=== PATIENT | male | born 1960 | race Two or more races ===

== ENCOUNTER 2017-08-16 08:51 | Outpatient (CLI) | payer OTHER | END 2017-08-16 09:00 | disposition home or self-care (01) | LOC: LAB 08:51 | DX: D68.8 Other specified coagulation defects (principal); M54.06 Panniculitis affecting regions of neck and back, lumbar region ==

== ENCOUNTER → 2017-08-25 | Outpatient (CLI) | payer OTHER | END | disposition home or self-care (01) | LOC: LAB 08:20 | DX: B94.2 Sequelae of viral hepatitis (principal); I11.9 Hypertensive heart disease without heart failure; E03.8 Other specified hypothyroidism; E78.89 Other lipoprotein metabolism disorders; N39.0 Urinary tract infection, site not specified; N40.0 Benign prostatic hyperplasia without lower urinary tract symptoms; E78.00 Pure hypercholesterolemia, unspecified; M19.90 Unspecified osteoarthritis, unspecified site; F33.9 Major depressive disorder, recurrent, unspecified; R97.8 Other abnormal tumor markers; D84.9 Immunodeficiency, unspecified ==

== ENCOUNTER 2017-09-19 09:04 | Outpatient (CLI) | payer OTHER | END 2017-09-19 09:08 | disposition home or self-care (01) | LOC: RAD 09:04 | DX: D68.8 Other specified coagulation defects (principal); M54.06 Panniculitis affecting regions of neck and back, lumbar region ==